=== PATIENT | female | born 1950 | race Caucasian/White ===

== ENCOUNTER → 2023-09-02 09:27 | Outpatient (REF) | payer MEDICARE, OTHER, SELFPAY | LOC: RAD 09:27 | PROVIDERS: ATTENDING PHYSICIAN Nurse Practitioner Family | DX: R10.9 Unspecified abdominal pain (principal) | CPT/HCPCS: 76700 ==

== ENCOUNTER 2023-09-05 22:41 | Day surgery (SDC) | payer MEDICARE, OTHER, SELFPAY ==
[2023-09-05] VITALS (7 sets, daily range): BP systolic 142–163; BP diastolic 71–91; BMI 35.0; BMI 34.1
[2023-09-05 17:05] LABS: % Basophils 0.3 % (0-2); % Eosinophils 0.6 % (0-6); % Immature Granulocytes 0.3 % (0-0.5); % Lymphocytes 13.5 % (20.5-51.1); % Monocytes 4.9 % (1.7-9.3); % Neutrophils 80.4 % (42.2-75.2); Absolute Eosinophils 0.1 10^3/uL (0-0.7); Absolute Lymphocytes 1.6 10^3/uL (1.2-3.4); Absolute Monocytes 0.6 10^3/uL (0.1-0.6); Absolute Neutrophils 9.5 10^3/uL (1.4-6.5); Hematocrit 40.8 % (37.0-47.0); Hemoglobin 13.7 g/dL (12.0-16.0); Mean Corp Hgb Conc. 33.6 g/dL (33.0-37.0); Mean Corpuscular Hgb 29.1 pg (27.0-31.0); Mean Corpuscular Volume 86.6 fL (81.0-99.0); Mean Platelet Volume 10.3 fL (7.4-10.4); Nucleated Red Blood Cells % 0 %; Platelet Count 226 10^3/uL (130-400); Red Blood Cell Count 4.71 10^6/uL (4.20-5.40); Red Cell Dist. Width 12.9 % (11.5-14.5); White Blood Cell Count 11.8 10^3/uL (4.8-10.8)
[2023-09-05 17:27] LABS: ALT (SGPT) 45 U/L (0-35); AST (SGOT) 34 U/L (14-36); Albumin 4.4 g/dl (3.5-5.0); Alkaline Phosphatase 78 U/L (38-126); Blood Urea Nitrogen 12 mg/dl (7-17); Calcium 9.6 mg/dl (8.4-10.2); Carbon Dioxide 25 mmol/L (22-30); Chloride 103 mmol/L (98-107); Glucose 111 mg/dl (70-99); Lipase 80 U/L (23-300); Potassium 4.8 mmol/L (3.5-5.1); Sodium 136 mmol/L (135-145); Total Protein 7.4 g/dl (6.3-8.2); eGFR > 60.00
[2023-09-05] MEDS: NSS 500 IV (19:59)
[2023-09-05] MEDS: DILAUDID 0.5 MG IV ×2 (20:00→22:10)
--- NOTE | 2023-09-05 21:49 | ED.GENMED ---
History of Present Illness
General
Chief Complaint: Abdominal Pain
Source: patient
Exam Limitations: none
Time Seen by Provider: 09/05/23 19:38
Nursing documentation reviewed up to this point in time: agreed with
Travel History
Have you had any contact with someone who has COVID-19?: No
Do you have any symptoms of coronavirus? Fever > 100 degrees, chills, cough, shortness of breath, sore throat, loss of taste or smell, muscle aches, or headache?: No
History of Present Illness
History of Present Illness:
Patient with an ultrasound 3 days ago which revealed cholecystitis, presents ED secondary to worsening pain with decreased appetite over the past 24 hours. Abdominal pain described as sharp, nonradiating, worse with meals, without any alleviating
factors. Denies trauma. Denies fever or chills. Denies diarrhea. Denies change in bowel habits. Denies recent change in medications or diet. Denies previous history of similar symptoms.
Review of Systems
Review of Systems
Allergies reviewed?: Yes
All Other Systems: ROS reviewed and negative except as documented in HPI and ROS
Constitutional: Reports no symptoms; Denies fever
Respiratory: Reports no symptoms
ABD/GI: Reports abdominal pain and nausea; Denies vomiting or diarrhea
Musculoskeletal: Reports no symptoms
Skin: Reports no symptoms
Neurological: Reports no symptoms
Phy Exam
Physical Exam
Physical Exam:
Physical Exam
General: mild painful distress, not acutely ill. afebrile
Head: nc/at. eomi
Neck: supple. no meningeal signs.
Heart: s1/s2 regular rate and rhythm, no murmur. equal radial pulses.
Lungs: no acute respiratory distress. clear bilaterally
Abdomen: normal bowel sounds. mild RUQ tenderness to palpation, without rebound/guarding.
Neuro: alert and oriented. no focal neurological deficits
Skin: no rash
Psychiatric: well kept. interactive and cooperative
Extremities: no edema. no calf tenderness.
Course
Orders/Labs/Results
Orders:
Orders
09/05/23 16:58
Complete Blood Count/With Diff Urgent
Comprehensive Metabolic Panel Urgent
Lipase Urgent
09/05/23 19:44
0.9% Sodium Chloride 500 ml [Nss] 500 ml IV BOLUS
HYDROmorphone [Dilaudid] 0.5 mg IV NOW STA
09/05/23 19:52
US Abdomen Limited Urgent
Reason For Exam: RUQ pain, return visit to reevaluate
09/05/23 21:48
HYDROmorphone [Dilaudid] 0.5 mg IV NOW STA
Piperacillin/Tazo 3.375 Gram [Zosyn] 3.375 gram in 50 ml IV NOW
09/05/23 22:00
0.9% Sodium Chloride 1000 ml [Nss] 1,000 ml IV 100 mls/hr
09/05/23 22:07
Admit/Transfer Patient As Directed
Co-Sign Provider:
Level of Care: Observation services
Assign to:: Medical/Surgical
Physician / Group: General Surgery
Diagnosis: Acute Cholecystitis
09/05/23 22:10
Code Status As Directed
Resuscitation Status: Full Code
09/05/23 22:59
HYDROmorphone [Dilaudid] 0.5 mg IV Q2HPRN PRN
Prochlorperazine [Compazine] 10 mg IV Q6HPRN PRN
09/05/23 22:59
Activity As Directed
Activity Level: Out of Bed-Early Mobility
Anti-embolism (BESSIE) Hose As Directed
Type: Thigh high
Intake/ Output As Directed
Frequency: Per unit guidelines
Pneumatic Compression Sleeves As Directed
Type: Thigh high
Vital Signs As Directed
Frequency: Per unit guidelines
DX Deep Vein Thrombosis Video Routine
09/06/23 04:00
Piperacillin/Tazo 3.375 Gram [Zosyn] 3.375 gram in 50 ml IV Q6H
09/06/23 Breakfast
NPO
Allow oral meds: No
Allow clear liquids: No
NPO with Ice Chips: No
09/06/23 18:00
Enoxaparin Sodium [Lovenox] 40 mg SC QPM
09/06/23 22:00
Cetirizine HCl [Zyrtec] 5 mg PO HS
Abnormal Lab Results
09/05/23
16:58
WBC 11.8 H 10^3/uL
(4.8-10.8)
Absolute Neuts (auto) 9.5 H 10^3/uL
(1.4-6.5)
Neutrophils % 80.4 H %
(42.2-75.2)
Lymphocytes % 13.5 L %
(20.5-51.1)
Glucose 111 H mg/dl
(70-99)
ALT 45 H U/L
(0-35)
09/05/23 16:58
09/05/23 16:58
Vital Signs
Initial and Last Documented VS:
Initial Vital Signs
Temp Pulse Resp BP Pulse Ox
98.3 F 105 20 142/89 99
09/05/23 16:36 09/05/23 16:36 09/05/23 16:36 09/05/23 16:36 09/05/23 16:36
Last Documented Vital Signs
Temp Pulse Resp BP Pulse Ox
99 F 102 18 157/91 96
09/05/23 23:08 09/05/23 23:08 09/05/23 23:08 09/05/23 23:08 09/05/23 23:20
MDM/Problems Addressed
MDM/Problems Addressed:
Discussed with Dr. Mckeon, general surgery on-call. Requests repeat abdominal ultrasound.
Abdominal ultrasound report reviewed and discussed with Dr. Mckeon. Recommends admission on Zosyn along with IV fluids.
*Critical Care Note
Total Time (30-74mins, 75-104mins- exclusive of procedures): Not Applicable
ED Attending Note
-
Portions of this chart may have been created with voice recognition software.� Occasional wrong word or��sound alike� substitutions may have occurred due to the inherent limitations of voice recognition software.
Discharge Plan
Departure
Patient Disposition: Admit
Date of Disposition: 09/05/23
Time of Disposition: 21:50
Presentation/result/management discussed w/ accepting MD/DO:
Condition: Fair
Discharge Problem:
Acute cholecystitis
Interventions
Interventions:
*Risk Screen - Suicide Last Done: 09/05/23 16:36
*General Assessment Last Done: 09/05/23 16:36
*Neglect/Abuse Screening Last Done: 09/05/23 16:36
ED- Fall Risk Assessment Last Done: 09/05/23 20:30
*ED COVID-19 Vaccine History Last Done: 09/05/23 19:47
*Nursing Disposition Last Done: 09/05/23 22:53
VF-Tckjuk-Wafaebpxfd Assessment Last Done: 09/05/23 20:17
Discharge Date and Time
Discharge Date/Time: 09/05/23 22:53
[2023-09-05] MEDS: ZOSYN 50 IV (22:10)
[2023-09-05] MEDS: NSS 1000 IV (22:11)
--- NOTE | 2023-09-05 23:26 | HPS.HSE ---
Addendum entered and electronically signed by Chi Mckeon MD 09/06/23 07:30:
Patient seen and examined independently.
Patient is a 72 yo F with a PMH of obesity, asthma, GERD, intermittent lower extremity swelling, and vertigo who presented to the ER with 4 days of persistent abdominal pain. Patient is Haitian-speaking only, translation provided by her daughter "Jaziel"who was present at bedside. She reports that her pain began acutely on . She describes RUQ abdominal pain which radiates to her back and shoulder. No nausea or vomiting. No fevers or chills. No jaundice, pale stools, or tea colored
urine. She had an outpatient ultrasound on Tuesday (09/01) which demonstrated gallbladder wall distention, wall thickening, and edema consistent with acute cholecystitis. She states that her abdominal pain slightly improved leading her to believe
that she did not need to present to the ER at that time. Over the weekend she has had waxing and waning abdominal pain. On Tuesday her pain persisted and worsened throughout the day prompting presentation to the ER. She states that she has had
prior attacks several years ago. No personal or family history of GI malignancies.
Gen: NAD
Abd: obese, soft, mild tenderness in RUQ, ND, non-peritoneal, no prior incisions
Labs and imaging were reviewed.
Patient is a 72 yo F p/w acute cholecystitis
The natural history and pathophysiology of cholecystitis was discussed. Anatomy was reviewed. Workup thus far including labs and imaging were reviewed. Given her persistent pain recommend cholecystectomy. We discussed that given her delayed
presentation as well as her morbid obesity she is at increased risk for operative complications.
Plan for a laparoscopic cholecystectomy with possible cholangiogram. The procedure itself, as well as the risks, benefits, and alternatives was discussed. Specifically, we discussed the risks of bleeding, infection, injury to surrounding
structures (bowel, bile ducts), CBD injury, need for open procedure, and general anesthetic complications. Typical postprocedural recovery including the 10 to 20% risk of limited changes in GI function were discussed. All questions answered.
Consent signed.
-- Laparoscopic cholecystectomy possible IOC
-- NPO, IVF
-- Abx: Zosyn
-- Pain control: Tylenol, Dilaudid
Original Note:
Family Physician
-
Family Physician: Delroy Pyle
Chief Complaint
-
abdominal pain
History of Present Illness
This is a very pleasant 72 year old Haitian speaking female who comes to the ED with intractable abdominal pain. Her daughter is here and has elected to interpret for her mother and will be staying over with her to provide language assistance.
Cara had an abdominal US last Tuesday due to ongoing abdominal pain as an outpatient. Apparently the discomfort waxes and wanes until she came to the ER today because of increased discomfort. No n/v/d, CP, SOB, dyspnea, chills or fever
experienced. PMH includes dizzyness, GERD, and allergies.
Medical History
Past Medical History
Past Medical History: Reports Asthma and GERD
Past Surgical History: Reports None
Social History
Tobacco: Non-smoker
Alcohol: None
Drug: None
Personal:
Living: With Family
Employment: Retired
Family History
Family History: Not pertinent
Allergies / Home Medications
Allergies reflects when Allergies were last updated in [employer].
Home Medications with original date entered in [employer]
Allergy/Medication List:
Allergies
Allergy/AdvReac Type Severity Reaction Status Date / Time
ciprofloxacin [From Cipro] Allergy Unknown Verified 09/05/23 16:42
Home Medications
albuterol sulfate 90 mcg/actuation aerosol inhaler (Ventolin HFA) 2 puff inhalation R Q6 PRN sob/wheezing 09/05/23
amoxicillin 875 mg-potassium clavulanate 125 mg tablet 1 tab PO BID 09/05/23
ergocalciferol (vitamin D2) 1,250 mcg (50,000 unit) capsule 1,250 mcg PO MO 09/05/23
furosemide 20 mg tablet 20 mg PO DAILY PRN swelling 09/05/23
levocetirizine 5 mg tablet 5 mg PO DAILY 09/05/23
scgfsh-jhkaxobr-kjseokk 36,000-114,000-180,000 unit capsule,delay rel (Creon) 1 cap PO TID 09/05/23
meclizine 12.5 mg tablet 12.5 mg PO TID PRN dizzines 09/05/23
montelukast 10 mg tablet 10 mg PO DAILY PRN allergies 09/05/23
omeprazole 20 mg capsule,delayed release 20 mg PO DAILY 09/05/23
temazepam 15 mg capsule 15 mg PO HS 09/05/23
Review of Systems
-
History Source: Patient and Family
Constitutional: Reports No Symptoms
EENT: Reports No Symptoms
Respiratory: Reports No Symptoms
Cardiac: Reports No Symptoms
Abdomen/GI: Reports Abdominal Pain
: Reports No Symptoms
Musculoskeletal: Reports No Symptoms
Skin: Reports No Symptoms
Neurological: Reports No Symptoms
Endocrine: Reports No Symptoms
Hematologic/Lymphatic: Reports No Symptoms
Psych: Reports No Symptoms
Physical Exam
Vital Signs
Vital Signs
Temp Pulse Resp BP Pulse Ox
99 F 102 18 157/91 98
09/05/23 23:08 09/05/23 23:08 09/05/23 23:08 09/05/23 23:08 09/05/23 23:08
Physical Exam
General: Well Developed, Well Nourished and Comfortable
HEENT: NormoCephalic, Atraumatic and PERRLA
Respiratory: Clear and Non Labored Respirations
Cardiac: Regular Rhythm
Breast: Deferred by me
GI: Soft and Non Distended
Rectal: Deferred by Provider
Genito-urinary: Clear Urine
Musculoskeletal: No Clubbing, No Cyanosis and No Edema
Skin: Warm and Dry
Neuro: Awake, Alert, AO x 3 and No Motor Deficits
Hematologic/Lymphatic: No Lymphadenopathy
Psych: Calm
Laboratory Results
-
09/05/23 16:58
09/05/23 16:58
Laboratory Results
Total Bilirubin 1.0 mg/dl (0.2-1.3) 09/05/23 16:58
AST 34 U/L (14-36) 09/05/23 16:58
ALT 45 U/L (0-35) H 09/05/23 16:58
Alkaline Phosphatase 78 U/L (38-126) 09/05/23 16:58
Lipase 80 U/L (23-300) 09/05/23 16:58
Data Reviewed
-
Ultrasound: Report Reviewed by me
Lab Data: Labs Reviewed by me
Old Records: Reviewed
Impression/Plan
-
IMPRESSION: acute cholecystitis
PLAN: This is a very pleasant 72 year old Haitian speaking female who comes to the ED with intractable abdominal pain. Her daughter is here and has elected to interpret for her mother and will be staying over with her to provide language assistance.
Cara had an abdominal US last Tuesday due to ongoing abdominal pain as an outpatient. Apparently the discomfort waxes and wanes until she came to the ER today because of increased discomfort. No n/v/d, CP, SOB, dyspnea, chills or fever
experienced. PMH includes dizzyness, GERD, and allergies.
*Acute cholecystitis: NPO, Dilaudid IV prn, NS IVF, Zosyn IV, antiemetic prn.
*DVT prophylaxis: Lovenox, SCDs, TEDs, OOB
*Disposition: General surgery service.
--- NOTE | 2023-09-05 23:57 | PTCARENOTE ---
Pt admitted to 2S. AAOx3, pleasant, Greenlandic speaking. Tachycardia to normal . Lungs, WNL. Pt c/o Rt upper quadrant abd pain. See MAR for pain management. IVF infusing. Daughter at bedside and was informed of tx plan. NPO. Call tobias within reach.
[2023-09-06] VITALS (11 sets, daily range): BP systolic 75–144; BP diastolic 45–75
[2023-09-06] MEDS: DILAUDID 0.5 MG IV ×3 (01:05→08:27)
--- NOTE | 2023-09-06 03:43 | PTCARENOTE ---
pt approved nurse to review chart and provide care for pain medication administration. Pts' nurse unavailable at this time.
[2023-09-06] MEDS: ZOSYN 50 IV ×4 (04:00→22:00)
[2023-09-06 06:25] LABS: Hepatitis C Antibody Negative (Negative)
[2023-09-06] MEDS: NSS 1000 IV ×2 (07:30→22:02)
--- NOTE | 2023-09-06 07:31 | W.SUR.PREOP ---
Pre-Operative Surgical Note
-
I have examined this patient prior to the performance of the scheduled procedure.
The patient's condition is unchanged from the time of the current History and
Physical and the patient is able to undergo the scheduled procedure.
--- NOTE | 2023-09-06 10:58 | CM ---
Patient seen at bedside with daughter present. Patient primary [place]an speaking, daughter present to translate. Patient PCP is Dr. Pyle and his phone number is [phone]. Patient pharmacy is [facility] in [facility]. Patient has had VN in the
past. Daughter requested [facility] as they have honduran speaking caregivers. Patient home is with the daughter and the home is a 2 story but first floor set up is possible. Per daughter no DME other than walker at this time. Patient
daughter plan is for discharge home with VN if needed. CM reviewed OBS/YEN form and signed form placed on chart. CM will continue to follow for discharge planning.
Plan; home with daughter; watch for VN needs
--- NOTE | 2023-09-06 14:17 | W.IMMPOSTOP ---
Addendum entered and electronically signed by Chi Mckeon MD 09/06/23 14:32:
[facility]#[id number]
Original Note:
Surgical Immed Post Op Note
-
Primary Surgeon: Linda
Assisting Surgeon: WILLIS Ballard
Pre-op Diagnosis: Acute cholecystitis
Post-op Diagnosis: Acute cholecystitis
Procedure Performed: Laparoscopic cholecystectomy
Anesthesia Type: General
Specimen / Cultures:
1. Gallbladder
Estimated Blood Loss: 11 cc
Complications: None
Operative Findings:
1. Severely inflamed and friable GB
2. Critical view of safety, short cystic duct
3. Duct and artery taken with clips
--- NOTE | 2023-09-06 16:08 | PTCARENOTE ---
Patient returned to her room from [facility] post laparoscopic cholecystectomy.Vital signs are stable.The patient denies any pain.She was able to ambulate to the bathroom and void immediately.Vital signs are stable.All 5 lap sites are clean and dry
without drainage..The patient is in her bed with the call tobias in reach.Her daughter is at the bedside.
[2023-09-06] MEDS: LOVENOX 40 MG SC (17:49)
[2023-09-06] MEDS: RESTORIL 15 MG PO (22:00)
[2023-09-06] MEDS: ZYRTEC 5 MG PO (22:00)
[2023-09-06] MEDS: ROXICODONE 5 MG PO (22:07)
[2023-09-07 03:55] VITALS: BP 116/60
[2023-09-07] MEDS: ZOSYN 50 IV (05:15)
[2023-09-07] MEDS: NSS 1000 IV (05:16)
[2023-09-07 07:40] VITALS: BP 117/59
--- NOTE | 2023-09-07 07:54 | W.PN.GS2 ---
Today's Communication / Plan
-
DC
Assessment / Plan
-
72F POD1 s/p lap bethel for ACC
Doing well post-op
DC home
Subjective Data
-
Date of Service: September 07, 2023
AFVSS, OOBTC, ravindra PO, pain controlled
Objective Data
-
Intake and Output
09/06/23 09/07/23 09/08/23
06:59 06:59 06:59
Intake Total 900 / 900 4360 / 4360
Balance 900 / 900 4360 / 4360
Intake:
Oral fluids 2160 / 2160
IV fluids (Total) 850 / 850 2000 / 2000
normosol 400 / 400
IV piggybacks 50 / 50 200 / 200
Other:
Number of approximated MODERATE 2 4
amounts of urine
Vital Signs
Temp Pulse Resp BP Pulse Ox
98.3 F 60 18 117/59 96
09/07/23 07:40 09/07/23 07:40 09/07/23 07:40 09/07/23 07:40 09/07/23 07:40
Lab Results
09/05/23 16:58
09/05/23 16:58
Calcium 9.6 mg/dl (8.4-10.2) 09/05/23 16:58
Total Bilirubin 1.0 mg/dl (0.2-1.3) 09/05/23 16:58
AST 34 U/L (14-36) 09/05/23 16:58
ALT 45 U/L (0-35) H 09/05/23 16:58
Alkaline Phosphatase 78 U/L (38-126) 09/05/23 16:58
Total Protein 7.4 g/dl (6.3-8.2) 09/05/23 16:58
Albumin 4.4 g/dl (3.5-5.0) 09/05/23 16:58
Physical Exam
-
Gen: NAD
Abd: soft, approp ttp, incisions cdi
--- NOTE | 2023-09-07 07:55 | W.DS.TRANS ---
DC Summary - Channel Development Manager
-
Discharge Instructions:
Discharge Diagnosis/Procedures Acute cholecystitis s/p laparoscopic
cholecystectomy
Diet Regular,Low Fat
Additional Diets If issues with bloating or diarrhea follow a low
-fat diet
Activity No strenuous activity
Additional Activity No heavy lifting (>20 lbs) or strenuous
activities for 2 weeks postoperatively
Driving Restrictions No driving if too sore or taking narcotics
Bathing Restrictions OK to Shower
Wound Care Keep incisions clean and dry. Glue will flake
off in 2 to 3 weeks. Stitches will dissolve.
Instructions:
Stand-Alone Forms:
Changes to Home Medications: No
Discharge Medications:
DC Medications w/original date entered in [employer]
albuterol sulfate 90 mcg/actuation aerosol inhaler (Ventolin HFA) 2 puff inhalation R Q6 PRN sob/wheezing 09/05/23
amoxicillin 875 mg-potassium clavulanate 125 mg tablet 1 tab PO BID Infection 09/05/23
ergocalciferol (vitamin D2) 1,250 mcg (50,000 unit) capsule 1,250 mcg PO MO Supplement 09/05/23
furosemide 20 mg tablet 20 mg PO DAILY PRN swelling 09/05/23
levocetirizine 5 mg tablet 5 mg PO DAILY Allergies 09/05/23
bcpvrz-rohhluoy-trftzpj 36,000-114,000-180,000 unit capsule,delay rel (Creon) 1 cap PO TID Gastrointestinal Issue 09/05/23
meclizine 12.5 mg tablet 12.5 mg PO TID PRN dizzines 09/05/23
montelukast 10 mg tablet 10 mg PO DAILY PRN allergies 09/05/23
omeprazole 20 mg capsule,delayed release 20 mg PO DAILY Gastrointestinal Issue 09/05/23
temazepam 15 mg capsule 15 mg PO HS Sleep 09/05/23
oxycodone 5 mg tablet 5 mg PO Q4HPRN PRN breakthrough/severe pain #5 tabs 09/06/23
Home Medication Changes
Pending Results: No
[2023-09-07] MEDS: PROTONIX 40 MG PO (09:29)
== END 2023-09-07 10:11 | disposition home or self-care (01) ==
LOC: SDS 22:41
PROVIDERS: Emergency Medicine; ATTENDING PHYSICIAN Surgery; EMERGENCY PHYSICIAN Emergency Medicine; FAMILY PHYSICIAN Internal Medicine
DX: K80.10 Calculus of gallbladder with chronic cholecystitis without obstruction (principal)
CPT/HCPCS: 47562; 88304; 76705; 80053; 83690; 85025; 86803; 96361; 96374; 96376; 99285; G0378

== ENCOUNTER → 2024-11-02 10:14 | Outpatient (REF) | payer MEDICARE, OTHER, SELFPAY | LOC: DHSLP 10:14 | PROVIDERS: ATTENDING PHYSICIAN Internal Medicine; FAMILY PHYSICIAN Internal Medicine | DX: G47.33 Obstructive sleep apnea (adult) (pediatric) (principal) | CPT/HCPCS: 95800 ==

== ENCOUNTER → 2025-02-22 08:31 | Outpatient (REF) | payer MEDICARE, OTHER, SELFPAY | LOC: HWRAD 08:31 | PROVIDERS: ATTENDING PHYSICIAN Internal Medicine Cardiovascular Disease; FAMILY PHYSICIAN Internal Medicine | DX: E78.00 Pure hypercholesterolemia, unspecified (principal) | CPT/HCPCS: 75571 ==